=== PATIENT | female | born 1995 | race Caucasian/White ===

== ENCOUNTER 2020-06-07 19:27 | Emergency (ER) | payer SELFPAY ==
[~2020-06-07] VITALS: Ht 157.5 cm; Wt 56.8 kg
[2020-06-07 19:44] VITALS: TEMP 97.3
[2020-06-07 20:50] VITALS: BP 138/91; PULSE 84
== END 2020-06-07 20:50 | disposition home or self-care (01) ==
LOC: COL.ER 19:27
DX: S39.012A Strain of muscle, fascia and tendon of lower back, initial encounter (principal); X50.0XXA Overexertion from strenuous movement or load, initial encounter; Y92.59 Other trade areas as the place of occurrence of the external cause; Y99.0 Civilian activity done for income or pay
CPT/HCPCS: J1885; J2360

== ENCOUNTER 2020-06-19 08:30 | Outpatient (RCR) | payer OTHER | END 2020-09-17 | disposition home or self-care (01) | LOC: WSOH | DX: M62.830 Muscle spasm of back (principal); E16.2 Hypoglycemia, unspecified; Z90.89 Acquired absence of other organs; Z96.22 Myringotomy tube(s) status; Y99.0 Civilian activity done for income or pay ==

== ENCOUNTER 2022-08-24 16:18 | Emergency (ER) | payer SELFPAY ==
[~2022-08-24] VITALS: Ht 157.5 cm; Wt 77.3 kg
[~2022-08-24 16:18] MED LIST: ABILIFY2 MG PO; IMITREX100 MG PO
[2022-08-24 16:29] VITALS: TEMP 98.4
[2022-08-24 17:19] LABS: HEMATOCRIT 42.4 % (37.0-47.0); MEAN CELL VOLUME 82 fl (80.0-100.0); MEAN CORPUSCULAR HEMOGLOBIN 27 pg (27-31); MEAN CORPUSCULAR HGB CONC 33 g/dl (33.0-37.0); MEAN PLATELET VOLUME 10.9 fl (7.4-10.4); PLATELET COUNT 159 K/mm3 (130-400); RED BLOOD COUNT 5.17 M/mm3 (4.10-5.30); REDCELL DISTRIBUTION WIDTH-CV 13.9 % (11.5-14.5)
[2022-08-24 17:36] LABS: STREP SCREEN NEGATIVE
[2022-08-24 17:37] LABS: MONOSCREEN NEGATIVE
[2022-08-24 17:39] LABS: ALBUMIN 3.6 gm/dL (3.5-5.0); BILIRUBIN,TOTAL 0.5 mg/dL (0.2-1.2); CALCIUM 8.8 mg/dL (8.4-10.2); CREATININE, serum 0.95 mg/dL (0.57-1.11); POTASSIUM 3.9 mmol/L (3.5-4.5); TOTAL PROTEIN 7.5 gm/dL (6.2-8.1)
[2022-08-24 18:11] LABS: BAND 21 % (0-10); BASOPHIL 1 % (0-2); LYMPHOCYTE 46 % (20.0-51.0); NEUTROPHILS 21 % (42.0-75.2); PLATELET ESTIMATE NORMAL (NORMAL)
[2022-08-24 19:45] LABS: COLLECTION METHOD CLEAN CATCH
[2022-08-24 19:51] LABS: MUCOUS Present (NOT PRESENT); SQUAMOUS EPITHELIAL 0-2 /hpf (0-10); URINE APPEARANCE Cloudy (CLEAR/HAZY); URINE BACTERIA Rare /hpf (NONE SEEN); URINE COLOR Yellow (YELLOW); URINE RBC 0-2 /hpf (0-2)
[2022-08-24 19:52] LABS: URINE BLOOD Negative (NEGATIVE); URINE GLUCOSE Negative (NEGATIVE); URINE KETONE 1+ (NEGATIVE); URINE NITRATE Negative (NEGATIVE); URINE PROTEIN(semi-quant) Negative (NEGATIVE); URINE UROBILINOGEN 0.2 E.U/dL (0.2-1.0)
[2022-08-24] MEDS ORDERED: ZOFRAN ODT4 MG PO (20:07)
[2022-08-24 20:27] VITALS: BP 124/66; PULSE 68
== END 2022-08-24 20:29 | disposition home or self-care (01) ==
LOC: COL.ER 16:18
PROVIDERS: Physician Assistant
DX: K80.20 Calculus of gallbladder without cholecystitis without obstruction (principal); K76.0 Fatty (change of) liver, not elsewhere classified; R74.01 Elevation of levels of liver transaminase levels; R74.8 Abnormal levels of other serum enzymes; D72.819 Decreased white blood cell count, unspecified; Z20.822 Contact with and (suspected) exposure to COVID-19; Z28.310 Unvaccinated for COVID-19
CPT/HCPCS: J1885; J2405; J7030; Q9967

== ENCOUNTER 2024-01-10 03:41 | Emergency (ER) | payer BC ==
[~2024-01-10] VITALS: Ht 157.5 cm; Wt 74.1 kg
[~2024-01-10 03:41] MED LIST changes: +ZOFRAN ODT4 MG PO
[2024-01-10 03:52] VITALS: TEMP 97.9
[2024-01-10 04:09] LABS: COLLECTION METHOD CLEAN CATCH
[2024-01-10 04:12] LABS: PH 5.5 (5.0-8.5); URINE APPEARANCE CLEAR (CLEAR/HAZY); URINE BLOOD NEGATIVE (NEGATIVE); URINE COLOR YELLOW (YELLOW); URINE GLUCOSE NEGATIVE (NEGATIVE); URINE KETONE NEGATIVE (NEGATIVE); URINE NITRATE NEGATIVE (NEGATIVE); URINE PROTEIN(semi-quant) NEGATIVE (NEGATIVE); URINE UROBILINOGEN 0.2 E.U/dL (0.2-1.0)
[2024-01-10] MEDS ORDERED: diphenhydrAMINE 50 MG/ML 1 ML VIAL IM ONE (04:15)
[2024-01-10] MEDS ORDERED: ZOFRAN ODT4 MG PO (04:41)
[2024-01-10 05:19] VITALS: BP 119/74; PULSE 58
== END 2024-01-10 05:25 | disposition home or self-care (01) ==
LOC: COL.ER 03:41
PROVIDERS: Emergency Medicine
DX: R10.84 Generalized abdominal pain (principal); R11.2 Nausea with vomiting, unspecified
CPT/HCPCS: J1200; J2765